=== PATIENT | female | born 1995 | race Caucasian/White ===

== ENCOUNTER 2016-07-22 16:19 | Emergency (ER) | payer BC, OTHER ==
[~2016-07-22] VITALS: Ht 170.2 cm; Wt 55.5 kg
[~2016-07-22 16:19] MED LIST: ALBU1AER9 PO; APRI28 PO; BUTA1CAP17 PO; HYDR-5688 PO; SUMA25TA12 PO
[2016-07-22 16:29] VITALS: TEMP 36.7; Ht 170.2 cm; Wt 55.5 kg
[2016-07-22] MEDS ORDERED: SODIUM CHLORIDE 0.9% 1000ML 1,000 ML IV STA (17:35)
[2016-07-22] MEDS ORDERED: ONDANSETRON INJ 2 MG/ML 2 ML VIAL IV STA (17:35)
[2016-07-22 17:52] LABS: BASO % 1.3 %; BASO ABS # 0.12 K/uL (0-0.2); COMPLETE YES; EOS % 4.5 %; HEMATOCRIT 40.7 % (37-47); IG% 0.2 %; LYMPH % 38.8 %; LYMPH ABS # 3.48 K/uL (1.2-3.4); MEAN CELL VOLUME 85.9 fL (80-100); MEAN CORPUSCULAR HEMOGLOBIN 28.5 pg (25-34); MEAN CORPUSCULAR HGB CONC 33.2 g/dl (32-36); MEAN PLATELET VOLUME 12.4 fL (7.4-10.4); MONO % 7.1 %; NEUT % 48.1 %; PLATELET COUNT 217 K/uL (130-400); RED BLOOD COUNT 4.74 M/uL (4.2-5.4); WHITE BLOOD COUNT 8.96 K/uL (4.8-10.8)
[2016-07-22 18:02] LABS: URINE APPEARANCE CLEAR (CLEAR); URINE BILIRUBIN NEG (NEG); URINE COLOR YELLOW; URINE NITRITE NEG (NEG); URINE SPECIFIC GRAVITY 1.028 (1.000-1.030); UROBILINOGEN NEG (NEG)
[2016-07-22 18:07] LABS: MANUAL MICROSCOPIC REQUIRED? NO; REVIEW REQ? NO
[2016-07-22 18:09] LABS: ALT/SGPT 18 U/L (12-78); AST/SGOT 14 U/L (15-37); BLOOD UREA NITROGEN 12 mg/dl (7-18); BUN/CREATININE RATIO 13.2 (10-20); CALCIUM 8.6 mg/dl (8.5-10.1); CARBON DIOXIDE 29 mmol/L (21-32); CHLORIDE 107 mmol/L (98-107); CREATININE 0.91 mg/dl (0.60-1.20); GLUCOSE 86 mg/dl (70-99); POTASSIUM 3.7 mmol/L (3.5-5.1); SODIUM 143 mmol/L (136-145)
[2016-07-22 18:11] LABS: ALKALINE PHOSPHATASE 74 U/L (45-117)
--- NOTE | 2016-07-22 20:56 | DIAGNOSTIC IMAGING REPORT ---
CT SCAN OF THE ABDOMEN AND PELVIS WITH IV CONTRAST CLINICAL HISTORY: Right lower quadrant abdominal pain. COMPARISON STUDY: Abdominal CT dated 11/29/2005. TECHNIQUE: Following the IV administration of 94 cc of Optiray 320, CT scan of the abdomen and pelvis is performed from the lung bases to the proximal femora. Images are reviewed in the axial, sagittal, and coronal planes. IV contrast was administered without complication. Automated dose control exposure was utilized. CT DOSE: 284.06 mGy.cm FINDINGS: Lung bases: The heart is normal in size and without pericardial effusion. The lung bases are clear. Liver: The contrast-enhanced liver is normal in size, contour, and attenuation. There is no intrahepatic biliary ductal dilatation. The hepatic veins and portal veins are patent. Gallbladder: Unremarkable. Spleen: Normal in size and attenuation. Pancreas: Unremarkable. Adrenal glands: Unremarkable. Kidneys: The contrast enhanced kidneys are normal in size and without hydronephrosis. The kidneys enhance symmetrically. A circumaortic left renal vein is incidentally noted. Abdominal vasculature: The abdominal aorta is normal in course and caliber. Bowel: The small bowel and colon are normal in course and caliber. The appendix is well-visualized and normal. Peritoneum: There is no intraperitoneal free air or abdominal ascites. There is a small fat-containing umbilical hernia. A naval piercing is noted. Lymphadenopathy: None. Pelvic viscera: The bladder, uterus, and adnexa are normal as visualized. There are small bilateral ovarian follicles. Skeletal structures: No lytic or blastic lesions are seen. IMPRESSION: There are no acute infectious or inflammatory findings in the abdomen or pelvis. Electronically signed by: Aden Amado M.D. 07/22/2016 8:55 PM Dictated Date/Time: 07/22/2016 8:51 PM
[2016-07-22] MEDS ORDERED: OPTIRAY 320 IV PRN (21:00)
[2016-07-22 21:22] VITALS: BP 127/84; PULSE 78; O2SAT 96
--- NOTE | 2016-07-23 00:26 | EMERGENCY ROOM VISIT NOTE ---
History Report prepared by Angelica: Shirin Miller Under the Supervision of: Dr. Gamaliel Allen M.D. First contact with patient: 17:26 Chief Complaint: ABDOMINAL PAIN Stated Complaint: LOWER RT ABD PAIN,FEELS LIKE PASSING OUT,NAUSEA History of Present Illness The patient is a 21 year old female who presents to the Emergency Room with complaints of intermittent RLQ abdominal pain starting at 2100 last night. 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 A pelvic exam was performed there and the doctor referred her to the ED for potential appendicitis. The pain started while she was watching TV. She did not have any abdominal pain prior to 2100 yesterday. She describes her pain as sharp. The pain worsens with certain movements such as twisting her trunk. She reports nausea. She denies any back pain, vomiting, diarrhea, abnormal vaginal discharge or bleeding, or urinary symptoms. She is unsure if she has a fever. Her last normal menstrual period was 1 week ago which was normal in timing and flow. She denies any history of abdominal surgery. Source of History: patient Onset: last night Position: abdomen (RLQ) Quality: sharp Timing: waxes/wanes Modifying Factors (Worsening): movement Associated Symptoms: + nausea, No fevers, No vomiting, No diarrhea, No urinary symptoms Review of Systems See HPI for pertinent positives & negatives. A total of 10 systems reviewed and were otherwise negative. Past Medical & Surgical Medical Problems: (1) Asthma (2) Bilateral leg pain (3) Concussion injury of brain (4) Dyspnea (5) Palpitations (6) Pneumonia (7) POTS (postural orthostatic tachycardia syndrome) (8) Pulmonary nodule, left (9) Rib pain on right side (10) Tachycardia (11) Tonsillectomy and adenoidectomy Family History Blood clots Diabetes mellitus FH: cancer FH: gallbladder disease FH: heart disease FH: lung disease Hypertension Social History Smoking Status: Never Smoker Alcohol Use: none Housing Status: lives with family Occupation Status: [employer] student Current/Historical Medications Scheduled Control Pills ( Control Pills), 1 TAB PO DAILY Gabapentin (Neurontin), 300 MG PO HS Mometasone Furoate (Inhalation (Asmanex 30 Metered Doses), 1 PUFF INH BID Omeprazole (Prilosec), 20 MG PO QAM Scheduled PRN Albuterol Sulfate (Proair Respiclick), 21 PUFFS INH Q4H PRN for SOB/Wheezing Loratadine (Claritin), 10 MG PO DAILY PRN for Allergy Symptoms Sumatriptan Succinate (Imitrex), 100 MG PO UD PRN for Migraine Allergies Coded Allergies: Doxepin (Unverified Allergy, Unknown, HIVES , 12/23/15) Lactose (Verified Adverse Reaction, Severe, ABDOMINAL PAIN AND SWELLING, 12/23/15) Physical Exam Vital Signs Date Time Temp Pulse Resp B/P (MAP) Pulse Ox O2 Delivery O2 Flow Rate FiO2 07/22/16 21:22 78 16 127/84 96 07/22/16 20:44 71 16 125/82 96 Room Air 07/22/16 18:50 80 16 127/87 96 Room Air 07/22/16 18:41 81 07/22/16 18:07 74 18 133/83 100 Room Air 07/22/16 16:29 36.7 138 18 105/79 99 Room Air Physical Exam Constitutional: Vital signs reviewed. Eyes: Pupils are equal round reactive to light. Conjunctiva are noninjected. ENT: Pharynx is clear without erythema or exudate. Mucous membranes are moist. Neck supple without meningeal signs. Respiratory: Clear to auscultation bilaterally. Breath sounds are equal bilaterally. Cardiovascular: Regular rate and rhythm. No rubs or gallops. GI: Soft, nondistended with RLQ tenderness to palpation. No guarding. Bowel sounds are present. Musculoskeletal: No peripheral edema. No lower extremity tenderness. Integumentary: No cyanosis. Neurological: The patient is awake and alert. No focal deficits. Psychiatric: Normal affect. Medical Decision & Procedures ER Provider Diagnostic Interpretation: Radiology results as stated below per my review and the radiologist's interpretation: CT SCAN OF THE ABDOMEN AND PELVIS WITH IV CONTRAST CLINICAL HISTORY: Right lower quadrant abdominal pain. COMPARISON STUDY: Abdominal CT dated 11/29/2005. TECHNIQUE: Following the IV administration of 94 cc of Optiray 320, CT scan of the abdomen and pelvis is performed from the lung bases to the proximal femora. Images are reviewed in the axial, sagittal, and coronal planes. IV contrast was administered without complication. Automated dose control exposure was utilized. CT DOSE: 284.06 mGy.cm FINDINGS: Lung bases: The heart is normal in size and without pericardial effusion. The lung bases are clear. Liver: The contrast-enhanced liver is normal in size, contour, and attenuation. There is no intrahepatic biliary ductal dilatation. The hepatic veins and portal veins are patent. Gallbladder: Unremarkable. Spleen: Normal in size and attenuation. Pancreas: Unremarkable. Adrenal glands: Unremarkable. Kidneys: The contrast enhanced kidneys are normal in size and without hydronephrosis. The kidneys enhance symmetrically. A circumaortic left renal vein is incidentally noted. Abdominal vasculature: The abdominal aorta is normal in course and caliber. Bowel: The small bowel and colon are normal in course and caliber. The appendix is well-visualized and normal. Peritoneum: There is no intraperitoneal free air or abdominal ascites. There is a small fat-containing umbilical hernia. A naval piercing is noted. Lymphadenopathy: None. Pelvic viscera: The bladder, uterus, and adnexa are normal as visualized. There are small bilateral ovarian follicles. Skeletal structures: No lytic or blastic lesions are seen. IMPRESSION: There are no acute infectious or inflammatory findings in the abdomen or pelvis. Electronically signed by: Aden Amado M.D. 07/22/2016 8:55 PM Dictated Date/Time: 07/22/2016 8:51 PM Laboratory Results 07/22/16 17:40 Red Blood Count 4.74, Mean Corpuscular Volume 85.9, Mean Corpuscular Hemoglobin 28.5, Mean Corpuscular Hemoglobin Concent 33.2, Mean Platelet Volume 12.4, Neutrophils (%) (Auto) 48.1, Lymphocytes (%) (Auto) 38.8, Monocytes (%) (Auto) 7.1, Eosinophils (%) (Auto) 4.5, Basophils (%) (Auto) 1.3, Neutrophils # (Auto) 4.30, Lymphocytes # (Auto) 3.48, Monocytes # (Auto) 0.64, Eosinophils # (Auto) 0.40, Basophils # (Auto) 0.12 07/22/16 17:40 Test 07/22/16 17:30 07/22/16 17:40 Urine Color YELLOW Urine Appearance CLEAR (CLEAR) Urine pH 6.0 (4.5-7.5) Urine Specific [place] 1.028 (1.000-1.030) Urine Protein NEG (NEG) Urine Glucose (UA) NEG (NEG) Urine Ketones TRACE (NEG) Urine Occult Blood NEG (NEG) Urine Nitrite NEG (NEG) Urine Bilirubin NEG (NEG) Urine Urobilinogen NEG (NEG) Urine Leukocyte Esterase NEG (NEG) Urine Test NEG (NEG) White Blood Count 8.96 K/uL (4.8-10.8) Red Blood Count 4.74 M/uL (4.2-5.4) Hemoglobin 13.5 g/dL (12.0-16.0) Hematocrit 40.7 % (37-47) Mean Corpuscular Volume 85.9 fL (80-100) Mean Corpuscular Hemoglobin 28.5 pg (25-34) Mean Corpuscular Hemoglobin Concent 33.2 g/dl (32-36) Platelet Count 217 K/uL (130-400) Mean Platelet Volume 12.4 fL (7.4-10.4) Neutrophils (%) (Auto) 48.1 % Lymphocytes (%) (Auto) 38.8 % Monocytes (%) (Auto) 7.1 % Eosinophils (%) (Auto) 4.5 % Basophils (%) (Auto) 1.3 % Neutrophils # (Auto) 4.30 K/uL (1.4-6.5) Lymphocytes # (Auto) 3.48 K/uL (1.2-3.4) Monocytes # (Auto) 0.64 K/uL (0.11-0.59) Eosinophils # (Auto) 0.40 K/uL (0-0.5) Basophils # (Auto) 0.12 K/uL (0-0.2) RDW Standard Deviation 41.2 fL (36.4-46.3) RDW Coefficient of Variation 13.0 % (11.5-14.5) Immature Granulocyte % (Auto) 0.2 % Immature Granulocyte # (Auto) 0.02 K/uL (0.00-0.02) Anion Gap 7.0 mmol/L (3-11) Est Creatinine Clear Calc Drug Dose 86.4 ml/min Estimated GFR () 105.3 Estimated GFR (Non- 90.8 BUN/Creatinine Ratio 13.2 (10-20) Calcium Level 8.6 mg/dl (8.5-10.1) Total Bilirubin 0.2 mg/dl (0.2-1) Direct Bilirubin < 0.1 mg/dl (0-0.2) Aspartate Amino Transf (AST/SGOT) 14 U/L (15-37) Alanine Aminotransferase (ALT/SGPT) 18 U/L (12-78) Alkaline Phosphatase 74 U/L (45-117) Total Protein 7.5 gm/dl (6.4-8.2) Albumin 3.7 gm/dl (3.4-5.0) Lipase 169 U/L (73-393) Laboratory results as reviewed by me. Medications Administered Medications (Trade) Dose Ordered Sig/Iman Route Start Time Stop Time Status Last Admin Dose Admin Ondansetron HCl (Zofran Inj) 4 mg NOW STAT IV 07/22/16 17:35 07/22/16 17:36 DC 07/22/16 18:02 4 MG Sodium Chloride 1,000 ml @ 999 mls/hr Q1H1M STAT IV 07/22/16 17:35 07/22/16 18:35 DC 07/22/16 18:02 999 MLS/HR ED Course 1728: The patient was evaluated in room C1B. A complete history and physical exam was performed. 1735: NSS 1000 ml @ 999 mls/hr IV, Zofran Inj 4 mg IV. 1904: I reevaluated the patient. I updated her on the results. 2107: Upon reevaluation, the patient appeared to have improvement of her symptoms. I discussed ophelia's findings with her. She verbalized agreement of the treatment plan. She was discharged home. Medical Decision This is a 21-year-old female presents with right lower quadrant pain. Differential diagnosis includes acute appendicitis, perforation, abscess, ovarian cyst, ectopic , irritable bowel syndrome, inflammatory bowel disease, kidney stone. I did perform a limited focused review of portions of the patient's old chart on the electronic medical record. The patient has had no recent pertinent visits to this hospital. Medication Reconciliation: I attest that I have personally reviewed the patient' s current medication list. Blood Pressure Screening: Patient was found to have normal blood pressure on screening and does not require follow-up. I did evaluate the patient as noted above. She is presenting with right lower quadrant pain. She did have a pelvic exam at her GYNs office who sent her here for rule out appendicitis. IV access was established. I did treat patient with Zofran IV. She was also given normal saline IV. I did order and personally review the patient's urinalysis as described above. Urine test was negative. I did order and review the patient's blood work as noted in the electronic medical record. Her white blood cell count was not elevated. I did order a CT of the abdomen and pelvis. I did review the images myself as well as the radiology report as described above. Her appendix is visualized and normal. I did discuss the test results with the patient and her father. She was advised follow closely with her doctor. She was discharged in good condition. Impression Primary Impression: RLQ abdominal pain Scribe Attestation The scribe's documentation has been prepared under my direct and personally reviewed by me in its entirety. I confirm that the note above accurately reflects all work, treatment, procedures, and medical decision making performed by me. Departure Information Dispostion Home / Self-Care Referrals RV. Drake MD (PCP) Forms HOME CARE DOCUMENTATION FORM, IMPORTANT VISIT INFORMATION Patient Instructions ED Abdominal Pain Unkn Cause, My [facility] Additional Instructions You have been examined and treated today on an emergency basis only. This is not a substitute for, or an effort to provide, complete comprehensive medical care. It is impossible to recognize and treat all injuries or illnesses in a single emergency department visit. It is therefore important that you follow up closely with your physician on Monday. Call as soon as possible for an appointment. Return for worsening symptoms or if you develop fever, vomiting, or any other concerning symptoms.
[2016-11-10] MEDS ORDERED: MOME110A INH (07:10)
[2016-11-10] MEDS ORDERED: PRLSR20 PO (07:10)
[2016-11-10] MEDS ORDERED: GABA-113 PO (13:39)
== END 2016-07-22 21:24 | disposition home or self-care (01) ==
LOC: C.EDB 16:20 → C.EDC 21:24
DX: R10.31 Right lower quadrant pain (principal); J45.909 Unspecified asthma, uncomplicated; I49.8 Other specified cardiac arrhythmias; R91.1 Solitary pulmonary nodule; R00.0 Tachycardia, unspecified; Z79.3 Long term (current) use of hormonal contraceptives; Z83.3 Family history of diabetes mellitus; Z82.49 Family history of ischemic heart disease and other diseases of the circulatory system; Z83.2 Family history of diseases of the blood and blood-forming organs and certain disorders involving the immune mechanism

== ENCOUNTER → 2016-10-13 | Outpatient (CLI) | payer BC ==
[~2016-10-13] MED LIST changes: +ALBU18002 INH; -ALBU1AER9 PO; -APRI28 PO; +BCPILLS PO; -BUTA1CAP17 PO; +CLR10 PO; +DIPH25CA65 PO; +DOXY100T PO; +GABA-113 PO; -HYDR-5688 PO; +IMT100 PO; +IPRASOL4 INH; +MOME110A INH; +PRED10TA PO; +PRLSR20 PO; -SUMA25TA12 PO
[2016-10-13 17:32] LABS: BASO % 0.7 %; BASO ABS # 0.06 K/uL (0-0.2); COMPLETE YES; EOS % 3.2 %; HEMATOCRIT 38.4 % (37-47); IG% 0.2 %; LYMPH % 38.4 %; LYMPH ABS # 3.27 K/uL (1.2-3.4); MEAN CELL VOLUME 84.4 fL (80-100); MEAN CORPUSCULAR HEMOGLOBIN 26.8 pg (25-34); MEAN CORPUSCULAR HGB CONC 31.8 g/dl (32-36); MEAN PLATELET VOLUME 12.2 fL (7.4-10.4); MONO % 8.8 %; NEUT % 48.7 %; PLATELET COUNT 249 K/uL (130-400); RED BLOOD COUNT 4.55 M/uL (4.2-5.4); WHITE BLOOD COUNT 8.52 K/uL (4.8-10.8)
[2016-10-13 18:03] LABS: BLOOD UREA NITROGEN 14 mg/dl (7-18); BUN/CREATININE RATIO 18.4 (10-20); CALCIUM 8.8 mg/dl (8.5-10.1); CARBON DIOXIDE 25 mmol/L (21-32); CHLORIDE 107 mmol/L (98-107); CREATININE 0.76 mg/dl (0.60-1.20); GLUCOSE 87 mg/dl (70-99); POTASSIUM 3.8 mmol/L (3.5-5.1); SODIUM 139 mmol/L (136-145)
== END | disposition home or self-care (01) ==
LOC: C.LAB1850 16:40
PROVIDERS: ATTEND Nurse Practitioner Adult Health
DX: R53.83 Other fatigue (principal); R00.2 Palpitations; M62.81 Muscle weakness (generalized); G47.00 Insomnia, unspecified; R25.1 Tremor, unspecified

== ENCOUNTER → 2016-11-03 | Outpatient (CLI) | payer BC ==
--- NOTE | 2016-11-03 10:30 | DIAGNOSTIC IMAGING REPORT ---
CHEST 2 VIEWS ROUTINE CLINICAL HISTORY: 21 years-old Female presenting with SOB COUGH. TECHNIQUE: PA and lateral views of the chest were obtained. COMPARISON: 06/29/2015. FINDINGS: Cardiomediastinal silhouette normal. Lungs and pleural spaces clear. Osseous structures normal. Upper abdomen normal. IMPRESSION: 1. No acute cardiopulmonary disease. Electronically signed by: Christopher Gipson M.D. 11/03/2016 10:29 AM Dictated Date/Time: 11/03/2016 10:28 AM
== END | disposition home or self-care (01) ==
LOC: C.RAD1850 10:14
PROVIDERS: ATTEND Physician Assistant
DX: R06.02 Shortness of breath (principal); R05 Cough

== ENCOUNTER 2016-11-10 17:16 | Emergency (ER) | payer BC ==
[~2016-11-10] VITALS: Ht 170.2 cm; Wt 53.7 kg
[~2016-11-10 17:16] MED LIST changes: -ALBU18002 INH; -BCPILLS PO; -CLR10 PO; -DIPH25CA65 PO; -DOXY100T PO; -IMT100 PO; -IPRASOL4 INH; -OPTIRAY 320 IV PRN; -PRED10TA PO
[2016-11-10 17:21] VITALS: BP 152/78; PULSE 113; TEMP 36.9; O2SAT 100; Ht 170.2 cm; Wt 53.7 kg
[2016-11-10] MEDS ORDERED: ALBU18002 INH (18:30)
[2016-11-10] MEDS ORDERED: IMT100 PO (18:30)
[2016-11-10] MEDS ORDERED: BCPILLS PO (18:30)
[2016-11-10] MEDS ORDERED: CLR10 PO (18:31)
[2016-11-10] MEDS ORDERED: IPRASOL4 INH (18:56)
[2016-11-10] MEDS ORDERED: DOXY100T PO (18:56)
[2016-11-10] MEDS ORDERED: DIPH25CA65 PO (18:56)
[2016-11-10] MEDS ORDERED: PRED10TA PO (18:56)
== END 2016-11-10 18:49 | disposition left against medical advice (07) ==
LOC: C.EDB 17:17
DX: R07.9 Chest pain, unspecified (principal)

== ENCOUNTER → 2016-11-10 | Outpatient (CLI) | payer BC ==
[~2016-11-10] MED LIST changes: +OPTIRAY 320 IV PRN
--- NOTE | 2016-11-10 15:25 | DIAGNOSTIC IMAGING REPORT ---
CT ANGIOGRAM OF THE CHEST CLINICAL HISTORY: Cough. Atypical chest pain. Dyspnea. COMPARISON STUDY: Chest CT scans dated 11/23/2015 and 05/29/2015. TECHNIQUE: Following the IV administration of 77 cc of Optiray 320, CT angiogram of the chest was performed from the upper abdomen to the thoracic inlet utilizing the pulmonary embolus protocol. Images are reviewed in the axial, sagittal, and coronal planes. 3-D MIPS images are created and assessed. IV contrast was administered without complication. A dose lowering technique was utilized adhering to the principles of ALARA. Examination is degraded by motion artifact. CT DOSE: 186.72 mGy.cm FINDINGS: Thyroid: Imaged portions of the thyroid gland are normal in size and attenuation. Thoracic aorta: The thoracic aorta is normal in caliber and demonstrates standard 3-vessel arch anatomy. No dissection is seen. Pulmonary vasculature: The pulmonary trunk is normal in caliber. There are no filling defects identified in main, lobar, or segmental pulmonary branches to suggest pulmonary embolus. Heart: The heart is normal in size and configuration, and without pericardial effusion. Lungs and pleural spaces: Evaluation of the lung parenchyma is degraded by respiratory motion artifact. No airspace consolidation or pleural effusion is identified. The trachea and central airways are clear. Mediastinum: There is no mediastinal lymphadenopathy. [place]: Clear. Axillae: There is no axillary lymphadenopathy. Upper abdomen: Partially visualized upper abdominal viscera is within normal limits. Skeletal structures: No lytic or blastic bony lesions are seen. IMPRESSION: 1. There is no evidence of pulmonary embolus in the main, lobar, or segmental pulmonary arteries. 2. The lungs are clear. Electronically signed by: Aden Amado M.D. 11/10/2016 3:23 PM Dictated Date/Time: 11/10/2016 3:20 PM
[2016-11-10 16:21] LABS: BLOOD UREA NITROGEN 12 mg/dl (7-18); BUN/CREATININE RATIO 16.2 (10-20); CALCIUM 8.9 mg/dl (8.5-10.1); CARBON DIOXIDE 31 mmol/L (21-32); CHLORIDE 100 mmol/L (98-107); CREATININE 0.76 mg/dl (0.60-1.20); GLUCOSE 86 mg/dl (70-99); POTASSIUM 3.3 mmol/L (3.5-5.1); SODIUM 136 mmol/L (136-145)
== END | disposition home or self-care (01) ==
LOC: C.CTS 14:56
PROVIDERS: ATTEND Physician Assistant
DX: R05 Cough (principal); R07.81 Pleurodynia; R06.02 Shortness of breath

== ENCOUNTER → 2016-12-01 | Outpatient (CLI) | payer BC ==
[~2016-12-01] MED LIST changes: +ALBU18002 INH; +BCPILLS PO; +CLR10 PO; +DIPH25CA65 PO; +DOXY100T PO; +IMT100 PO; +IPRASOL4 INH; +PRED10TA PO
== END | disposition home or self-care (01) ==
LOC: C.LAB1850 14:35
PROVIDERS: ATTEND Physician Assistant
DX: R06.02 Shortness of breath (principal)

== ENCOUNTER → 2017-01-24 | Outpatient (CLI) | payer BC ==
[~2017-01-24] MED LIST changes: -CLR10 PO; -DOXY100T PO; -PRED10TA PO
[2017-01-27 02:52] LABS: CHLAMYDIA TRACH RNA*** NOT DETECTED (NOT DETECTED); GC (NEIS GONORRHOEAE)RNA** NOT DETECTED (NOT DETECTED)
== END | disposition home or self-care (01) ==
LOC: C.LABSPEC 17:21
PROVIDERS: ATTEND Physician Assistant
DX: Z01.419 Encounter for gynecological examination (general) (routine) without abnormal findings (principal)

== ENCOUNTER → 2017-03-01 | Outpatient (CLI) | payer OTHER ==
[2017-03-01 10:24] LABS: HEMOGLOBIN A1C 5.2 % (4.5-5.6)
[2017-03-01 10:47] LABS: ALBUMIN 3.4 gm/dl (3.4-5.0); ALT/SGPT 16 U/L (12-78); AST/SGOT 10 U/L (15-37); BLOOD UREA NITROGEN 8 mg/dl (7-18); CALCIUM 8.6 mg/dl (8.5-10.1); CARBON DIOXIDE 26 mmol/L (21-32); GLUCOSE 73 mg/dl (70-99); POTASSIUM 3.5 mmol/L (3.5-5.1); SODIUM 140 mmol/L (136-145)
[2017-03-01 10:49] LABS: ALKALINE PHOSPHATASE 48 U/L (45-117); TOTAL PROTEIN 6.6 gm/dl (6.4-8.2)
== END | disposition home or self-care (01) ==
LOC: C.LAB1850 09:15
PROVIDERS: ATTEND Physician Assistant
DX: R63.1 Polydipsia (principal)

== ENCOUNTER → 2017-06-30 | Outpatient (CLI) | payer OTHER ==
--- NOTE | 2017-06-30 14:02 | DIAGNOSTIC IMAGING REPORT ---
FUSION CT SINUSES W/O HISTORY: 21 years-old Female R09.81 Nasal congestionPATIENT HAS CHRONIC NASAL CONGESTION. PL chronic nasal congestion COMPARISON: Brain MRI 02/14/2014 TECHNIQUE: Multiple axial CT images of the paranasal sinuses were obtained without the use of IV contrast. A dose lowering technique was used consistent with the principals of TYE. FINDINGS: The imaged intracranial structures demonstrate no acute abnormality. The soft tissues and orbits appear unremarkable. Mastoid air cells and middle ear cavities are clear bilaterally. Moderate mucosal thickening about the right maxillary sinus containing air-fluid level with aerated secretions. There is mild mucosal thickening about the left maxillary sinus. Minimal right sphenoid with mild left sphenoid sinus disease with small air-fluid level and minimal polypoid mucosal thickening of the anterior sphenoid wall. The frontal sinuses are patent. Mild mucosal thickening about the ethmoid air cells. There is mild rightward bowing and spurring of the nasal septum. Mild mucosal thickening of the nasal turbinates with small bilateral aleah bullosa. Small air-fluid level within the right aleah bullosa. Bilateral Vishal cells are present with mild mucosal thickening and narrowing of the right maxillary ostiomeatal unit. The left maxillary ostiomeatal unit is generally patent. There is patency of the bilateral frontoethmoidal recesses. The bilateral sphenoethmoidal recesses are patent. Aura carter appears normal. IMPRESSION: 1. Paranasal sinus disease as above, most pronounced within the right maxillary sinus with evidence of acute maxillary sinus disease. 2. Bilateral Vishal cells with mild narrowing and mucosal thickening of the right maxillary ostiomeatal unit. 3. Patency of the remaining sinus outflow tracts. 4. Mild rightward bowing and spurring of the nasal septum. 5. Small bilateral aleah bullosa. The above report was generated using voice recognition software. It may contain grammatical, syntax or spelling errors. Electronically signed by: Edilson Lei M.D. 06/30/2017 2:01 PM Dictated Date/Time: 06/30/2017 1:52 PM
== END | disposition home or self-care (01) ==
LOC: C.CTS 13:30
PROVIDERS: ATTEND Physician Assistant
DX: R09.81 Nasal congestion (principal); J01.00 Acute maxillary sinusitis, unspecified

== ENCOUNTER → 2017-09-11 | Outpatient (CLI) | payer OTHER ==
[~2017-09-11] MED LIST changes: +IPRA-64 INH; -IPRASOL4 INH
--- NOTE | 2017-09-11 16:21 | DIAGNOSTIC IMAGING REPORT ---
L FINGER(S) MIN 2 VIEWS ROUTINE HISTORY: 22 years-old Female L 4TH FINGER XRAY ATTN PIP JOINT acute pain of the left fourth finger, pronounced within the PIP joint COMPARISON: None available TECHNIQUE: 3 views of the left fourth finger FINDINGS: No acute fracture, dislocation, opaque foreign body or erosive arthropathy. The soft tissues are within normal limits. IMPRESSION: No acute fracture or dislocation. The above report was generated using voice recognition software. It may contain grammatical, syntax or spelling errors. Electronically signed by: Edilson Lei M.D. 09/11/2017 4:20 PM Dictated Date/Time: 09/11/2017 4:19 PM
--- NOTE | 2017-09-20 20:45 | CODING QUERY NO DIAGNOSIS ---
TREATMENT RENDERED WITHOUT A DIAGNOSIS To promote full compliance with coding requirements relating to patient care, physician participation is requested in all cases of field gauger uncertainty. Please assist us with providing a diagnosis/symptom for the test(s) below: A diagnosis/symptom was not documented on your Order. A valid diagnosis/symptom is required to bill all insurances. Please remember that we are unable to code a diagnosis of rule out, probable, possible, questionable, or suspected. Tests that require a diagnosis: DOS: 09/11/17 * XRAY Fingers Left DIAGNOSIS: Provider Signature: Date: Thank you [facility] Information Management Once completed, please kindly fax back to [phone] For questions please call [phone]
== END | disposition home or self-care (01) ==
LOC: C.RAD1850 15:22
PROVIDERS: ATTEND Nurse Practitioner Adult Health
DX: M79.645 Pain in left finger(s) (principal)

== ENCOUNTER 2017-09-23 11:10 | Emergency (ER) | payer OTHER ==
[~2017-09-23] VITALS: Ht 170.2 cm; Wt 59.2 kg
[2017-09-23 11:12] VITALS: TEMP 36.7; Ht 170.2 cm; Wt 59.2 kg
[2017-09-23 11:30] VITALS: O2SAT 98
[2017-09-23] MEDS ORDERED: SODIUM CHLORIDE 0.9% 1000ML 1,000 ML IV STA (11:30)
[2017-09-23 11:42] LABS: BASO % 0.7 %; BASO ABS # 0.05 K/uL (0-0.2); EOS % 2.7 %; EOS ABS # 0.21 K/uL (0-0.5); HEMATOCRIT 40.2 % (37-47); HEMOGLOBIN 13.1 g/dL (12.0-16.0); IG# 0.01 K/uL (0.00-0.02); LYMPH % 33.1 %; LYMPH ABS # 2.54 K/uL (1.2-3.4); MEAN CELL VOLUME 88.4 fL (80-100); MEAN CORPUSCULAR HEMOGLOBIN 28.8 pg (25-34); MEAN CORPUSCULAR HGB CONC 32.6 g/dl (32-36); MEAN PLATELET VOLUME 11.9 fL (7.4-10.4); MONO % 7.3 %; MONO ABS # 0.56 K/uL (0.11-0.59); NEUT % 56.1 %; PLATELET COUNT 210 K/uL (130-400); RED CELL DISTRIBUTION WIDTH CV 13.2 % (11.5-14.5); RED CELL DISTRIBUTION WIDTH SD 42.5 fL (36.4-46.3); WHITE BLOOD COUNT 7.67 K/uL (4.8-10.8)
[2017-09-23 12:01] LABS: INR 1.1 (0.9-1.1); PTT PATIENT 25.9 SECONDS (21.0-31.0)
[2017-09-23 12:08] LABS: ALBUMIN 3.5 gm/dl (3.4-5.0); ALKALINE PHOSPHATASE 60 U/L (45-117); ALT/SGPT 20 U/L (12-78); AST/SGOT 22 U/L (15-37); BLOOD UREA NITROGEN 13 mg/dl (7-18); CALCIUM 8.6 mg/dl (8.5-10.1); CARBON DIOXIDE 25 mmol/L (21-32); CREATININE 0.77 mg/dl (0.60-1.20); GLUCOSE 84 mg/dl (70-99); LIPASE 203 U/L (73-393); PHOSPHORUS 3.4 mg/dl (2.5-4.9); POTASSIUM 3.8 mmol/L (3.5-5.1); SODIUM 141 mmol/L (136-145); TOTAL PROTEIN 6.9 gm/dl (6.4-8.2)
--- NOTE | 2017-09-23 12:12 | DIAGNOSTIC IMAGING REPORT ---
SINGLE VIEW CHEST CLINICAL HISTORY: Weakness. Change in mental status. FINDINGS: An AP, portable, upright chest radiograph is compared to study dated 11/03/2016 and correlated with chest CT dated 11/10/2016. The examination is mildly degraded by portable technique and patient rotation. The cardiomediastinal silhouette is unremarkable. The lungs and pleural spaces are clear. No pneumothorax is seen. The bony thorax is grossly intact. IMPRESSION: No active disease in the chest. Electronically signed by: Aden Amado M.D. 09/23/2017 12:10 PM Dictated Date/Time: 09/23/2017 12:10 PM
--- NOTE | 2017-09-23 12:15 | DIAGNOSTIC IMAGING REPORT ---
CT SCAN OF THE BRAIN WITHOUT IV CONTRAST CLINICAL HISTORY: Near syncope. COMPARISON STUDY: MRI of the brain dated 02/14/2014. TECHNIQUE: Unenhanced axial CT scan of the brain is performed from the vertex to the skull base. A dose lowering technique was utilized adhering to the principles of ALARA. CT DOSE: 690.05 mGycm FINDINGS: Brain parenchyma: The brain parenchyma is normal in appearance. There is no hemorrhage, mass effect, or evidence of acute territorial ischemia by CT criteria. Croft-white matter is preserved. No extra-axial fluid collection is seen. Ventricles, sulci, cisterns: Normal in configuration. Intracranial vasculature: The visualized intracranial vasculature at the skull base is normal in appearance. Calvarium: Unremarkable. Sinuses and mastoids: The visualized paranasal sinuses are clear. The mastoid air cells are well pneumatized. Orbits: The bony orbits are grossly intact. IMPRESSION: No acute intracranial abnormality. Electronically signed by: Aden Amado M.D. 09/23/2017 12:14 PM Dictated Date/Time: 09/23/2017 12:12 PM
[2017-09-23 13:30] VITALS: BP 109/71; PULSE 83; O2SAT 99
--- NOTE | 2017-09-23 17:17 | EMERGENCY ROOM VISIT NOTE ---
History First contact with patient: 11:15 Chief Complaint: SYNCOPE (NEAR SYNCOPE) Stated Complaint: DIZZY, SHAKY, ALMOST PASSED OUT Nursing Triage Summary: "I was eating this morning when I started not feeling well. I yelled for my mom and then I collapsed on the floor." Hx POTS syndrome, patient at [facility]. History of Present Illness The patient is a 22 year old female who presents to the Emergency Room with complaints of a near syncopal episode this morning while eating breakfast. The patient reports that she became dizzy, shaky and developed tunnel vision. She yelled at her mother with his symptoms. The patient reports that she never fully lost consciousness. The patient reports that 2 days ago, she did have intermittent epigastric pain with nausea. She denied any vomiting. She does take omeprazole for history of reflux, although she reports she has not had any significant or recent reflux symptoms. She denied any pain radiating into the back. She did notice some mild substernal chest discomfort as well. It did not radiate to the neck. The patient has a history of postural orthopedic tachycardia syndrome (POTS) that was diagnosed with a tilt table test in June 2015. The patient was seen last week at the [facility] where they suggested an exercise protocol. The patient reports that she is busy with college courses right now, and could not engage in a program that they recommended. The patient does not believe that her symptoms are secondary to POTS. The mother denies any prior history of seizures. The patient did not have any bladder incontinence or postictal state. The patient is certain that she did not lose consciousness. The patient has no history of anemia, thyroid disease or heart disease. She currently denies any chest pain or shortness of breath. Review of Systems HEENT: Denies hearing loss, tinnitus. Denies difficulty swallowing or oral lesions. PULMONARY: Denies cough, shortness of breath, sputum production or hemoptysis. CARDIOVASCULAR: Denies chest pain, recent palpitations, dyspnea on exertion, orthopnea or peripheral edema. GASTROINTESTINAL: Denies diarrhea, constipation, nausea, vomiting, or abdominal pain. GENITOURINARY: Denies dysuria, frequency, urgency or nocturia. NEUROLOGIC: Denies history of epilepsy, CVA, TIA or chronic headaches. MUSCULOSKELETAL: Denies history of joint tenderness/swelling. SKIN: Denies rashes or lesions. PSYCHIATRIC: Denies history of depression or mental illness. ENDOCRINE: Denies history of diabetes or thyroid disorders. Past Medical/Surgical History Medical Problems: (1) Asthma (2) Bilateral leg pain (3) Concussion injury of brain (4) Dyspnea (5) Palpitations (6) Pneumonia (7) POTS (postural orthostatic tachycardia syndrome) (8) Pulmonary nodule, left (9) Rib pain on right side (10) Tachycardia (11) Tonsillectomy and adenoidectomy Family History Blood clots Diabetes mellitus FH: cancer FH: gallbladder disease FH: heart disease FH: lung disease Hypertension Social History Smoking Status: Never Smoker Alcohol Use: none Housing Status: lives with family Occupation Status: [employer] student Current/Historical Medications Scheduled Control Pills ( Control Pills), 1 TAB PO DAILY Gabapentin (Neurontin), 300 MG PO HS Ipratropium-Albuterol (Duoneb), 1 TREATMENT INH QID Mometasone Furoate (Inhalation (Asmanex 30 Metered Doses), 1 PUFF INH BID Scheduled PRN Albuterol Sulfate (Proair Respiclick), 21 PUFFS INH Q4H PRN for SOB/Wheezing Sumatriptan Succinate (Imitrex), 100 MG PO UD PRN for Migraine Physical Exam Vital Signs Date Time Temp Pulse Resp B/P (MAP) Pulse Ox O2 Delivery O2 Flow Rate FiO2 09/23/17 13:30 83 18 109/71 99 09/23/17 12:15 79 119/75 98 Room Air 85 122/83 90 115/83 09/23/17 11:30 98 Room Air 09/23/17 11:12 36.7 100 18 142/93 98 Room Air Physical Exam CONSTITUTIONAL: Healthy and well nourished. Alert and oriented X 3. Patient does not appear in any acute distress. PSYCHIATRIC: Positive affect. Patient does appear somewhat anxious. She engages in conversation and answers all questions appropriately, although she argues back and forth with her mother who is also present throughout her ED evaluation. HEENT: Normocephalic, atraumatic. Pupils equal, round and reactive. No scleral icterus or conjunctival injection/pallor. No nystagmus. Ears and nares are clear. OROPHARYNX: No tonsillar hypertrophy or exudates. NECK: Full active range of motion without discomfort. No JVD or carotid bruits. No nuchal rigidity. RESPIRATORY: Clear to auscultation bilaterally with no wheezing, crackles, rhonchi or stridor. CARDIOVASCULAR: Regular rate and rhythm with no murmurs, rubs or gallops. GASTROINTESTINAL: Bowel sounds present in all quadrants. Soft and nontender to palpation. No obvious hepatosplenomegaly. Negative CVA tenderness. MUSCULOSKELETAL: Full range of motion of all joints without discomfort. Equal handgrip bilaterally. Ankle plantar/dorsiflexion strength is 5 out of 5 and symmetric bilaterally. No tenderness to palpation through the limbs or central thoracolumbar spine or ribs. INTEGUMENTARY: No rash or other significant dermatologic conditions noted. HEMATOLOGIC: No ecchymosis or petechiae. NEUROLOGIC: Cranial nerves II-XII grossly intact. No focal neurologic deficits noted. Negative pronator drift. No ataxia with ambulation to her exam room. Medical Decision & Procedures ER Provider Diagnostic Interpretation: My interpretation of an ECG shows a normal sinus rhythm of [address] elevation or other conduction abnormalities. My interpretation of a portable chest x-ray does not show any consolidations or pneumothorax. Radiologist report is as follows: SINGLE VIEW CHEST CLINICAL HISTORY: Weakness. Change in mental status. FINDINGS: An AP, portable, upright chest radiograph is compared to study dated 11/03/2016 and correlated with chest CT dated 11/10/2016. The examination is mildly degraded by portable technique and patient rotation. The cardiomediastinal silhouette is unremarkable. The lungs and pleural spaces are clear. No pneumothorax is seen. The bony thorax is grossly intact. IMPRESSION: No active disease in the chest. Laboratory Results 09/23/17 11:30 Red Blood Count 4.55, Mean Corpuscular Volume 88.4, Mean Corpuscular Hemoglobin 28.8, Mean Corpuscular Hemoglobin Concent 32.6, Mean Platelet Volume 11.9, Neutrophils (%) (Auto) 56.1, Lymphocytes (%) (Auto) 33.1, Monocytes (%) (Auto) 7.3, Eosinophils (%) (Auto) 2.7, Basophils (%) (Auto) 0.7, Neutrophils # (Auto) 4.30, Lymphocytes # (Auto) 2.54, Monocytes # (Auto) 0.56, Eosinophils # (Auto) 0.21, Basophils # (Auto) 0.05 09/23/17 11:30 Test 09/23/17 11:30 09/23/17 11:32 White Blood Count 7.67 K/uL (4.8-10.8) Red Blood Count 4.55 M/uL (4.2-5.4) Hemoglobin 13.1 g/dL (12.0-16.0) Hematocrit 40.2 % (37-47) Mean Corpuscular Volume 88.4 fL (80-100) Mean Corpuscular Hemoglobin 28.8 pg (25-34) Mean Corpuscular Hemoglobin Concent 32.6 g/dl (32-36) Platelet Count 210 K/uL (130-400) Mean Platelet Volume 11.9 fL (7.4-10.4) Neutrophils (%) (Auto) 56.1 % Lymphocytes (%) (Auto) 33.1 % Monocytes (%) (Auto) 7.3 % Eosinophils (%) (Auto) 2.7 % Basophils (%) (Auto) 0.7 % Neutrophils # (Auto) 4.30 K/uL (1.4-6.5) Lymphocytes # (Auto) 2.54 K/uL (1.2-3.4) Monocytes # (Auto) 0.56 K/uL (0.11-0.59) Eosinophils # (Auto) 0.21 K/uL (0-0.5) Basophils # (Auto) 0.05 K/uL (0-0.2) RDW Standard Deviation 42.5 fL (36.4-46.3) RDW Coefficient of Variation 13.2 % (11.5-14.5) Immature Granulocyte % (Auto) 0.1 % Immature Granulocyte # (Auto) 0.01 K/uL (0.00-0.02) Prothrombin Time 11.5 SECONDS (9.0-12.0) Prothromb Time International Ratio 1.1 (0.9-1.1) Activated Partial Thromboplast Time 25.9 SECONDS (21.0-31.0) Partial Thromboplastin Ratio 1.0 D-Dimer < 190 ug/L FEU (0-500) Urine Color YELLOW Urine Appearance CLEAR (CLEAR) Urine pH 5.0 (4.5-7.5) Urine Specific Sayre 1.023 (1.000-1.030) Urine Protein NEG (NEG) Urine Glucose (UA) NEG (NEG) Urine Ketones NEG (NEG) Urine Occult Blood NEG (NEG) Urine Nitrite NEG (NEG) Urine Bilirubin NEG (NEG) Urine Urobilinogen NEG (NEG) Urine Leukocyte Esterase NEG (NEG) Urine Test NEG (NEG) Anion Gap 8.0 mmol/L (3-11) Est Creatinine Clear Calc Drug Dose 108.0 ml/min Estimated GFR () 127.9 Estimated GFR (Non- 110.4 BUN/Creatinine Ratio 17.0 (10-20) Calcium Level 8.6 mg/dl (8.5-10.1) Phosphorus Level 3.4 mg/dl (2.5-4.9) Magnesium Level 1.9 mg/dl (1.8-2.4) Total Bilirubin 0.3 mg/dl (0.2-1) Direct Bilirubin 0.1 mg/dl (0-0.2) Aspartate Amino Transf (AST/SGOT) 22 U/L (15-37) Alanine Aminotransferase (ALT/SGPT) 20 U/L (12-78) Alkaline Phosphatase 60 U/L (45-117) Total Creatine Kinase 95 U/L (26-192) Troponin I < 0.015 ng/ml (0-0.045) Total Protein 6.9 gm/dl (6.4-8.2) Albumin 3.5 gm/dl (3.4-5.0) Lipase 203 U/L (73-393) Thyroid Stimulating Hormone (TSH) 1.510 uIu/ml (0.300-4.500) Urine Opiates Screen NEG (NEG) Urine Methadone, Qualitative NEG (NEG) Urine Barbiturates NEG (NEG) Urine Phencyclidine (PCP) Level NEG (NEG) Ur Amphetamine/Methamphetamine NEG (NEG) MDMA (Ecstasy) Screen NEG (NEG) Urine Benzodiazepines Screen NEG (NEG) Urine Cocaine Metabolite NEG (NEG) Urine Marijuana (THC) NEG (NEG) Bedside Glucose 91 mg/dl (70-90) The above labs were reviewed and were grossly normal. Medications Administered Medications (Trade) Dose Ordered Sig/Iman Route Start Time Stop Time Status Last Admin Dose Admin Sodium Chloride 1,000 ml @ 999 mls/hr Q1H1M STAT IV 09/23/17 11:30 09/23/17 12:30 DC 09/23/17 11:30 999 MLS/HR ED Course Patient history and physical exam were performed. Nurse's notes were reviewed. Vital signs were reviewed, showing an initial blood pressure 142/93. The patient does not appear in any acute respiratory distress, and engages in appropriate conversation. I also reviewed documentation from the patients medical records, showing a tilt table test that was performed in [place] [address] Collier. The patient was prescribed Florinef 0.1 mg daily. 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 IV access was established, and labs were drawn. Orthostatic vital signs were normal. The patient was hydrated with a liter normal saline. ECG and portable chest x-ray were normal. The patient was placed on monitoring coordinator throughout her ED stay, and had no ectopy or other arrhythmias. Labs were reviewed and were normal. She is not anemic, and thyroid function is normal. Electrolytes are normal. The patient reported improving symptoms with the IV hydration. The case was further discussed with Dr. Kuhn who agrees with current plan up and outpatient disposition. The patient was instructed to follow-up with her PCP next week for further recheck. She was encouraged to rest and remain well- hydrated. I did encourage her to avoid driving in case she has another syncopal episode. She was instructed to return to the emergency department as needed for any recurrent or worsening symptoms. The patient was happy with plan of care, and voiced understanding of all discharge instructions. Medical Decision Patient presents to emergency department for evaluation of a near syncopal episode. The patient does have a history of POTS, and recently has followed up with the [facility] for her diagnosis. Her workup today is not suggestive of an acute cardiopulmonary etiology, pulmonary embolus, arrhythmia, myocardial infarction, electrolyte abnormality, anemia or hyperthyroidism. The patient does not appear clinically dehydrated, and had normal orthostatic vital signs. I do feel that the patient is safe for outpatient follow-up at this time. The patient may need a Holter monitor to rule out arrhythmia that was not seen on today's cardiac monitoring. [place] Drug Monitoring Program Search Results: patient reviewed within database Medication Reconcilliation Current Medication List: was personally reviewed by me Blood Pressure Screening Patient's blood pressure: Normal blood pressure Impression Primary Impression: Near syncope Additional Impression: POTS (postural orthostatic tachycardia syndrome) Departure Information Dispostion Home / Self-Care Condition GOOD Forms HOME CARE DOCUMENTATION FORM, IMPORTANT VISIT INFORMATION Patient Instructions My [employer] Additional Instructions Rest and remain well-hydrated. Avoid driving until reevaluated by your PCP early next week for recheck. Return to the emergency department for any recurrent syncopal episode, chest pain, shortness of breath or other concerning symptoms. Problem Qualifiers
== END 2017-09-23 13:31 | disposition home or self-care (01) ==
LOC: C.EDB 11:11 → C.EDC 13:31
DX: R55 Syncope and collapse (principal); I49.8 Other specified cardiac arrhythmias; J45.909 Unspecified asthma, uncomplicated; Z79.3 Long term (current) use of hormonal contraceptives

== ENCOUNTER → 2017-09-29 | Outpatient (CLI) | payer OTHER ==
[~2017-09-29] MED LIST changes: -DIPH25CA65 PO; -PRLSR20 PO
--- NOTE | 2017-09-29 09:19 | DIAGNOSTIC IMAGING REPORT ---
PELVIC ULTRASOUND, TRANSABDOMINAL HISTORY: R10.12 Abdominal pain, LUQ (left upper quadrant)R10.32 Abdominal COMPARISON: Abdomen and pelvis CT 07/22/2016. FINDINGS: Uterus: 7.7 x 4.2 x 2.6 cm. No uterine masses. Endometrial stripe: 6 mm in thickness. Right ovary: Normal in size and demonstrates normal color flow. Left ovary: Normal in size and demonstrates normal color flow. Miscellaneous:No pelvic free fluid. IMPRESSION: No significant abnormality identified within the pelvis. Electronically signed by: Italo Verdugo M.D. 09/29/2017 9:18 AM Dictated Date/Time: 09/29/2017 9:08 AM
== END | disposition home or self-care (01) ==
LOC: C.ULTR 08:40
PROVIDERS: ATTEND Physician Assistant
DX: R10.12 Left upper quadrant pain (principal); R10.32 Left lower quadrant pain